=== PATIENT | female | born 1955 | race Caucasian/White ===

== ENCOUNTER → 2024-09-25 12:51 | Outpatient (REF) | payer MEDICARE, BC, SELFPAY | LOC: HWRAD 12:51 | PROVIDERS: ATTENDING PHYSICIAN Obstetrics & Gynecology Gynecologic Oncology; FAMILY PHYSICIAN Nurse Practitioner Adult Health | DX: N80.9 Endometriosis, unspecified (principal); E03.9 Hypothyroidism, unspecified; Z12.4 Encounter for screening for malignant neoplasm of cervix; K64.8 Other hemorrhoids; N95.1 Menopausal and female climacteric states; Z12.31 Encounter for screening mammogram for malignant neoplasm of breast | CPT/HCPCS: 76830; 76856; 77063; 77067 ==